=== PATIENT | female | born 2000 | race Caucasian/White ===

== ENCOUNTER 2024-10-01 13:22 | Outpatient (CLI) | payer OTHER, SELFPAY ==
--- NOTE | ~2024-10-01 | XR_ITS ---
EXAMINATION: XR lumbar spine 2-3V DATE: 10/01/2024 13:44 INDICATION: Low back pain TECHNIQUE: Anteroposterior and lateral views of the lumbar spine, and cone-down lateral view of the l umbosacral junction were obtained. COMPARISON: None. FINDINGS: 7 degrees lumbar levocurvature. Sagittal alignment is normal. Vertebral body and disc heights are nor mal. Sacral arches are intact. Normal bilateral sacralized joints. Visualized lung bases are clear wi th no pleural effusion. IMPRESSION: 1. 7 degrees lumbar levocurvature. Reviewed, dictated and finalized at location A. [employer]
== END 2024-10-01 13:23 | disposition home or self-care (01) ==
LOC: MICIMG 13:25
PROVIDERS: PCP Nurse Practitioner Adult Health; Visit Provider Nurse Practitioner Adult Health
DX: M54.50 Low back pain, unspecified (principal); M79.2 Neuralgia and neuritis, unspecified
CPT/HCPCS: 72100

== ENCOUNTER 2025-01-31 10:26 | Outpatient (CLI) | payer OTHER, SELFPAY ==
--- NOTE | ~2025-01-31 | US_ITS ---
EXAMINATION: US pelvic complete INDICATION: Amenorrhea Comparison:No prior studies for comparison. TECHNIQUE: Multiple transabdominal sonographic images of the pelvis performed. FINDINGS: The uterus measures 6.5 x 3 x 4.4 cm. The endometrial complex measures 9 mm. The right ovary measures 4 x 2.4 x 3.1 cm and the left ovary measures 3.3 x 1.7 x 3.8 cm. There are small follicles in each ovary. Normal doppler signal in both ovaries. There is no free fluid in the pelvis. There are no abnormal masses seen on either side. IMPRESSION: 1. Normal pelvic ultrasound. Reviewed, dictated and finalized at location A.
== END 2025-01-31 10:27 | disposition home or self-care (01) ==
LOC: MICIMG 10:44
PROVIDERS: PCP Nurse Practitioner Adult Health; Visit Provider Nurse Practitioner Adult Health
DX: N91.2 Amenorrhea, unspecified (principal)
CPT/HCPCS: 76856